=== PATIENT | male | born 1955 | race Asian ===

== ENCOUNTER 2016-09-25 16:07 | Emergency (ER) | payer OTHER ==
[~2016-09-25] VITALS: Ht 177.8 cm; Wt 113.4 kg
[2016-09-25 17:41] LABS: PLATELET COUNT 198 K/uL (142-355)
[2016-09-25 17:49] LABS: POTASSIUM 5.1 mmol/L (3.6-5.2)
[2016-09-25 18:25] VITALS: BP 189/99; TEMP 98
== END 2016-09-25 18:25 | disposition home or self-care (01) ==
LOC: ED 16:07
DX: L03.115 Cellulitis of right lower limb (principal); I83.013 Varicose veins of right lower extremity with ulcer of ankle
CPT/HCPCS: 36415; 80053; 81000; 85027; 87040; 99283

== ENCOUNTER 2019-01-09 09:52 | Outpatient (CLI) | payer OTHER | END 2019-01-09 10:26 | disposition short-term general hospital (02) | LOC: AMB 09:52 | DX: M79.605 Pain in left leg (principal); M79.604 Pain in right leg; R22.2 Localized swelling, mass and lump, trunk | CPT/HCPCS: A0425; A0427 ==

== ENCOUNTER 2019-05-13 10:37 | Outpatient (CLI) | payer OTHER ==
[2019-05-13 11:14] LABS: PLATELET COUNT 195 K/uL (142-355)
[2019-05-13 12:13] LABS: POTASSIUM 5.5 mmol/L (3.6-5.2)
== END 2019-05-13 21:37 | disposition home or self-care (01) ==
LOC: LABW 10:37
PROVIDERS: Internal Medicine
DX: N18.4 Chronic kidney disease, stage 4 (severe) (principal); N25.81 Secondary hyperparathyroidism of renal origin; R82.998 Other abnormal findings in urine
CPT/HCPCS: 36415; 80053; 81000; 82306; 82330; 82570; 83735; 83970; 84100; 84155; 85027; 87077; 87086; 87088; 87186

== ENCOUNTER 2020-10-11 04:02 | Emergency (ER) | payer OTHER ==
[~2020-10-11] VITALS: Ht 180.3 cm; Wt 113.4 kg
[2020-10-11 04:50] VITALS: BP 151/69; TEMP 98.3
== END 2020-10-11 05:26 | disposition home or self-care (01) ==
LOC: ED 04:02
PROC: 0CDXXZ0 Extraction of Lower Tooth, Single, External Approach (ICD-10-PCS; principal; 2020-10-11)
DX: K08.89 Other specified disorders of teeth and supporting structures (principal)
CPT/HCPCS: 96372; 99283; J0696; J1170; J2405

== ENCOUNTER 2020-11-03 10:42 | Emergency (ER) | payer OTHER ==
[~2020-11-03] VITALS: Ht 180.3 cm; Wt 113.4 kg
[2020-11-03 12:00] LABS: PLATELET COUNT 140 K/uL (142-355)
[2020-11-03 12:14] LABS: PARTIAL THROMBOPLASTIN TIME 28.8 SECONDS (24.5-33.6)
[2020-11-03 12:42] LABS: POTASSIUM 7.5 mmol/L (3.6-5.2)
[2020-11-03 14:30] VITALS: BP 184/83; TEMP 98.9
== END 2020-11-03 15:35 | disposition short-term general hospital (02) ==
LOC: ED 10:42
PROVIDERS: Emergency Medicine
DX: N18.6 End stage renal disease (principal); E87.5 Hyperkalemia; D64.89 Other specified anemias; E87.2 Acidosis; R53.1 Weakness; Z03.818 Encounter for observation for suspected exposure to other biological agents ruled out
CPT/HCPCS: 36415; 36600; 80053; 80307; 81000; 82550; 82553; 82805; 83605; 83880; 84484; 85007; 85027; 85610; 85730; 87502; 87635; 93005; 96374; 96376; 99284; J1815; J3490; J7060; U0003

== ENCOUNTER 2021-01-04 12:15 | Emergency (ER) | payer OTHER | END 2021-01-04 15:10 | disposition home or self-care (01) | LOC: ED 12:15 | DX: N43.2 Other hydrocele (principal); Z53.29 Procedure and treatment not carried out because of patient's decision for other reasons | CPT/HCPCS: 99282 ==

== ENCOUNTER 2021-07-03 02:03 | Emergency (ER) | payer OTHER ==
[~2021-07-03] VITALS: Ht 180.3 cm; Wt 113.4 kg
[2021-07-03 03:12] LABS: POTASSIUM 5.5 mmol/L (3.6-5.2)
[2021-07-03 03:17] LABS: PLATELET COUNT 139 K/uL (142-355)
[2021-07-03] MEDS ORDERED: AMLODIPINE BESYLATE PO ×2 (03:27→03:28)
[2021-07-03] MEDS ORDERED: CARV12.5 PO (03:27)
[2021-07-03] MEDS ORDERED: VALSARTAN160 MG PO (03:28)
[2021-07-03 03:36] LABS: PARTIAL THROMBOPLASTIN TIME 31.1 SECONDS (24.5-33.6)
[2021-07-03 07:05] VITALS: BP 177/84; TEMP 98.1
== END 2021-07-03 07:05 | disposition home or self-care (01) ==
LOC: ED 02:03
PROVIDERS: Hospitalist
DX: N18.6 End stage renal disease (principal); Z99.2 Dependence on renal dialysis; R06.09 Other forms of dyspnea; D63.8 Anemia in other chronic diseases classified elsewhere; Z20.822 Contact with and (suspected) exposure to COVID-19
CPT/HCPCS: 36415; 36600; 80053; 82550; 82805; 83880; 84484; 85027; 85610; 85730; 87635; 93005; 96374; 96375; 99284; J1100; J1815; J2270; J7060; U0003

== ENCOUNTER 2022-02-08 20:31 | Emergency (ER) | payer OTHER ==
[~2022-02-08] VITALS: Ht 180.3 cm; Wt 113.4 kg
[~2022-02-08 20:31] MED LIST: AMLODIPINE BESYLATE PO; CARV12.5 PO; VALSARTAN160 MG PO
[2022-02-08 20:42] VITALS: TEMP 97.8
[2022-02-08 22:44] VITALS: BP 181/79
== END 2022-02-08 23:07 | disposition home or self-care (01) ==
LOC: ED 20:31
PROC: 2W38X1Z Immobilization of Right Upper Extremity using Splint (ICD-10-PCS; principal; 2022-02-08)
DX: M25.511 Pain in right shoulder (principal); G89.29 Other chronic pain; N18.6 End stage renal disease; Z99.2 Dependence on renal dialysis
CPT/HCPCS: 99283

== ENCOUNTER 2022-02-12 01:52 | Emergency (ER) | payer OTHER ==
[~2022-02-12] VITALS: Ht 180.3 cm; Wt 113.4 kg
[2022-02-12 01:52] VITALS: TEMP 98.2
[2022-02-12 03:00] VITALS: BP 170/80
== END 2022-02-12 03:00 | disposition home or self-care (01) ==
LOC: ED 01:52
DX: M25.511 Pain in right shoulder (principal); G89.29 Other chronic pain; N18.6 End stage renal disease; Z99.2 Dependence on renal dialysis
CPT/HCPCS: 96372; 99283; J1885; J2930

== ENCOUNTER 2022-12-01 17:41 | Emergency (ER) | payer OTHER ==
[~2022-12-01] VITALS: Ht 180.3 cm; Wt 91.2 kg
[2022-12-01 18:03] VITALS: TEMP 98.9
[2022-12-01 19:38] LABS: PARTIAL THROMBOPLASTIN TIME 34.8 SECONDS (23.9-36.7)
[2022-12-01 19:39] LABS: PLATELET COUNT 102 K/uL (142-355)
[2022-12-01 19:44] LABS: POTASSIUM 4.4 mmol/L (3.6-5.2)
[2022-12-01 20:56] VITALS: BP 164/71
== END 2022-12-01 20:56 | disposition home or self-care (01) ==
LOC: ED 17:41
PROVIDERS: Emergency Medicine
DX: K92.1 Melena (principal); N18.6 End stage renal disease; Z99.2 Dependence on renal dialysis; D64.9 Anemia, unspecified
CPT/HCPCS: 36415; 80053; 85027; 85610; 85730; 99283

== ENCOUNTER 2022-12-05 14:31 | Outpatient (CLI) | payer OTHER | END 2022-12-05 19:00 | LOC: LAB 14:31 | PROVIDERS: ATTEND Internal Medicine | DX: D64.89 Other specified anemias (principal) | CPT/HCPCS: 36415; 85014; 85018 ==

== ENCOUNTER 2022-12-12 14:03 | Outpatient (CLI) | payer OTHER | END 2022-12-12 19:22 | disposition home or self-care (01) | LOC: LAB 14:03 | PROVIDERS: ATTEND Internal Medicine | DX: D64.89 Other specified anemias (principal) | CPT/HCPCS: 36415; 85014; 85018 ==

== ENCOUNTER 2022-12-12 16:08 | Emergency (ER) | payer OTHER ==
[~2022-12-12] VITALS: Ht 180.3 cm; Wt 90.9 kg
[2022-12-12 16:08] VITALS: BP 158/63; TEMP 98
[2022-12-12 16:45] LABS: PLATELET COUNT 101 K/uL (142-355)
== END 2022-12-12 17:54 | disposition short-term general hospital (02) ==
LOC: ED 16:08
PROVIDERS: Family Medicine
DX: D64.9 Anemia, unspecified (principal); T78.3XXA Angioneurotic edema, initial encounter
CPT/HCPCS: 36430; 80053; 85027; 86140; 86850; 86900; 86901; 86922; 87040; 96374; 96375; 99284; P9016

== ENCOUNTER 2023-01-06 12:00 | Emergency (ER) | payer OTHER ==
[~2023-01-06] VITALS: Ht 180.3 cm; Wt 90.7 kg
[2023-01-06 12:16] LABS: PLATELET COUNT 120 K/uL (142-355)
[2023-01-06 12:30] LABS: POTASSIUM 4.2 mmol/L (3.6-5.2)
[2023-01-06 14:09] VITALS: BP 163/73; TEMP 97.8
== END 2023-01-06 14:10 | disposition home or self-care (01) ==
LOC: ED 12:00
PROVIDERS: Family Medicine
DX: N30.90 Cystitis, unspecified without hematuria (principal); R10.9 Unspecified abdominal pain
CPT/HCPCS: 80053; 85027; 99283